=== PATIENT | female | born 1995 | race African-American/Black ===

== ENCOUNTER 2019-05-07 12:27 | Outpatient (CLI) | payer MEDICAID ==
[2019-05-07 13:20] LABS: APPEARANCE,URINE CLEAR; BILIRUBIN,URINE NEGATIVE (NEGATIVE); COLOR,URINE STRAW; GLUCOSE, URINE NEGATIVE (NEGATIVE); KETONES,URINE NEGATIVE (NEGATIVE); URINE SPECIFIC GRAVITY 1.016
[2019-05-07 13:21] LABS: LEUKOCYTE ESTERASE,URINE NEGATIVE (NEGATIVE); NITRITE,URINE NEGATIVE (NEGATIVE); PROTEIN,URINE NEGATIVE (NEGATIVE); UROBILINOGEN,URINE NEGATIVE mg/dL (<2.0)
[2019-05-07 13:23] LABS: URINE AMPHETAMINES SCREEN NEGATIVE; URINE BARBITURATES SCREEN NEGATIVE; URINE BENZODIAZEPINES SCREEN NEGATIVE; URINE COCAINE SCREEN NEGATIVE; URINE MARIJUANA (THC) SCREEN NEGATIVE; URINE METHADONE SCREEN NEGATIVE; URINE PHENCYCLIDINE SCREEN NEGATIVE
== END 2019-05-07 13:10 | disposition home or self-care (01) ==
LOC: LC 12:27
PROVIDERS: ATTEND Student in an Organized Health Care Education/Training Program
PROC: 4A1HXCZ Monitoring of Products of Conception, Cardiac Rate, External Approach (ICD-10-PCS; principal; 2019-05-07)
DX: O36.8130 Decreased fetal movements, third trimester, not applicable or unspecified (principal); Z3A.30 30 weeks gestation of pregnancy
CPT/HCPCS: 80307; 81001

== ENCOUNTER 2019-07-11 02:39 | Outpatient (CLI) | payer MEDICAID ==
[2019-07-11 03:07] LABS: APPEARANCE,URINE CLEAR; BILIRUBIN,URINE NEGATIVE (NEGATIVE); COLOR,URINE STRAW; GLUCOSE, URINE NEGATIVE (NEGATIVE); KETONES,URINE NEGATIVE (NEGATIVE); LEUKOCYTE ESTERASE,URINE NEGATIVE (NEGATIVE); NITRITE,URINE NEGATIVE (NEGATIVE); PROTEIN,URINE NEGATIVE (NEGATIVE); URINE SPECIFIC GRAVITY 1.003; UROBILINOGEN,URINE NEGATIVE mg/dL (<2.0)
[2019-07-11 03:24] LABS: URINE AMPHETAMINES SCREEN NEGATIVE; URINE BARBITURATES SCREEN NEGATIVE; URINE BENZODIAZEPINES SCREEN NEGATIVE; URINE COCAINE SCREEN NEGATIVE; URINE MARIJUANA (THC) SCREEN NEGATIVE; URINE METHADONE SCREEN NEGATIVE; URINE PHENCYCLIDINE SCREEN NEGATIVE
[2019-07-11] MEDS ORDERED: HYDROXYZINE PAMOATE 50 MG CAPSULE ONE (04:44)
[2019-07-11] MEDS ORDERED: HYDROXYZINE PAMOATE 50 MG CAPSULE PO ONE (05:00)
--- NOTE | 2019-07-11 05:04 | Non Stress Test Report ---
Non Stress Test Datetime Report Generated by CPN: 07/11/2019 05:04 DEMOGRAPHIC EGA NST: 39.5 INDICATION Indication for Study: Other Indication for Study (NST) Other: LC URINE RESULTS Urine Protein, NST: Negative Urine Ketones - NST: Negative Urine Glucose - NST: Negative Urine Blood - NST: Negative MONITORING Monitor Explained: Monitor Explained; Test Explained; Patient Verbalized Understanding Time on Monitor: 07/11/2019 02:54 Time off Monitor: 07/11/2019 04:39 NST Duration: 105 NST INTERVENTIONS NST Interventions: PO Hydration Physician Notified NST: Duncan BABY A: [id number] BABY A Movement : Present Contraction Frequency : 1.5-6 FHR Baseline : 135 Accelerations : 15X15 Decelerations : None Variability : Moderate 6-25bpm NST Review: Meets Criteria for Reactive NST NST Review and Verified By : Ramiro Rincon RN NST Results: Reactive NST REPORT Report Trigger: Send Report
== END 2019-07-11 04:50 | disposition home or self-care (01) ==
LOC: LC 02:39
PROVIDERS: ATTEND Obstetrics & Gynecology Gynecology
PROC: 4A1HXCZ Monitoring of Products of Conception, Cardiac Rate, External Approach (ICD-10-PCS; principal; 2019-07-11)
DX: O47.1 False labor at or after 37 completed weeks of gestation (principal); Z3A.39 39 weeks gestation of pregnancy
CPT/HCPCS: 59025; 81005; 80307; J3490

== ENCOUNTER 2019-07-11 13:29 | Outpatient (CLI) | payer MEDICAID ==
[2019-07-11 14:12] LABS: APPEARANCE,URINE CLEAR; BILIRUBIN,URINE NEGATIVE (NEGATIVE); COLOR,URINE YELLOW; GLUCOSE, URINE NEGATIVE (NEGATIVE); KETONES,URINE NEGATIVE (NEGATIVE); LEUKOCYTE ESTERASE,URINE TRACE (NEGATIVE); NITRITE,URINE NEGATIVE (NEGATIVE); PROTEIN,URINE NEGATIVE (NEGATIVE); URINE SPECIFIC GRAVITY 1.008; UROBILINOGEN,URINE NEGATIVE mg/dL (<2.0)
[2019-07-11 14:25] LABS: URINE AMPHETAMINES SCREEN NEGATIVE; URINE BARBITURATES SCREEN NEGATIVE; URINE BENZODIAZEPINES SCREEN NEGATIVE; URINE COCAINE SCREEN NEGATIVE; URINE MARIJUANA (THC) SCREEN NEGATIVE; URINE METHADONE SCREEN NEGATIVE; URINE PHENCYCLIDINE SCREEN NEGATIVE
[2019-07-11] MEDS ORDERED: PROMETHAZINE HCL 25 MG TABLET ONE (15:30)
[2019-07-11] MEDS ORDERED: OXYCODONE-ACETAMINOPHEN 5-325 MG TABLET ONE (15:31)
[2019-07-11] MEDS ORDERED: OXYCODONE-ACETAMINOPHEN 5-325 MG TABLET PO ONE (15:38)
[2019-07-11] MEDS ORDERED: PROMETHAZINE HCL 25 MG TABLET PO ONE (15:39)
== END 2019-07-11 15:40 | disposition home or self-care (01) ==
LOC: LC 13:29
PROVIDERS: ATTEND Obstetrics & Gynecology
PROC: 4A1HXCZ Monitoring of Products of Conception, Cardiac Rate, External Approach (ICD-10-PCS; principal; 2019-07-11)
DX: O47.1 False labor at or after 37 completed weeks of gestation (principal); Z3A.39 39 weeks gestation of pregnancy
CPT/HCPCS: 59025; 81005; 80307; J3490

== ENCOUNTER 2019-07-11 20:47 | Inpatient (IN) | payer MEDICAID ==
--- NOTE | 2019-07-11 20:52 | Non Stress Test Report ---
Non Stress Test Datetime Report Generated by CPN: 07/11/2019 20:51 DEMOGRAPHIC EGA NST: 39.5 INDICATION Indication for Study: Ordered by Provider MONITORING Monitor Explained: Monitor Explained; Test Explained; Patient Verbalized Understanding Time on Monitor: 07/11/2019 13:45 Time off Monitor: 07/11/2019 15:25 NST Duration: 100 NST INTERVENTIONS NST Interventions: PO Hydration Physician Notified NST: A.Baptiste, CNM BABY A: [id number] BABY A Movement : Present Contraction Frequency : 3-5 FHR Baseline : 140 Accelerations : 15X15 Decelerations : None Variability : Moderate 6-25bpm NST Review: Meets Criteria for Reactive NST NST Review and Verified By : Samara Deras RN NST Results: Reactive NST REPORT Report Trigger: Send Report
[2019-07-11] MEDS ORDERED: OXYTOCIN 10 UNIT/ML VIAL ONE (21:09)
[2019-07-11] MEDS ORDERED: MISOPROSTOL 0.2 MG TABLET ONE (21:09)
[2019-07-11] MEDS ORDERED: OXYTOCIN/NORMAL SALINE 20 UNIT/1,000 ML RTUINJ ONE (21:09)
[2019-07-11] MEDS ORDERED: LIDOCAINE 1% INJ-PF (10 MG/ML) 30 ML SDV ONE (21:09)
[2019-07-11 21:26] LABS: APPEARANCE,URINE SLIGHTLY-CLOUDY; BILIRUBIN,URINE NEGATIVE (NEGATIVE); COLOR,URINE YELLOW; GLUCOSE, URINE NEGATIVE (NEGATIVE); KETONES,URINE 20 mg/dL (NEGATIVE); LEUKOCYTE ESTERASE,URINE TRACE (NEGATIVE); NITRITE,URINE NEGATIVE (NEGATIVE); PROTEIN,URINE 30 mg/dL (NEGATIVE); URINE SPECIFIC GRAVITY 1.015; UROBILINOGEN,URINE NEGATIVE mg/dL (<2.0)
[2019-07-11] MEDS ORDERED: RINGERS SOLUTION,LACTATED 1,000 ML IV PRN (21:29)
[2019-07-11] MEDS ORDERED: RINGERS SOLUTION,LACTATED 300 ML IV ONE (21:30)
[2019-07-11] MEDS ORDERED: OXYTOCIN/NORMAL SALINE 20 UNIT/1,000 ML RTUINJ IV PRN (21:30)
[2019-07-11 21:41] LABS: URINE AMPHETAMINES SCREEN NEGATIVE; URINE BARBITURATES SCREEN NEGATIVE; URINE BENZODIAZEPINES SCREEN NEGATIVE; URINE COCAINE SCREEN NEGATIVE; URINE MARIJUANA (THC) SCREEN NEGATIVE; URINE METHADONE SCREEN NEGATIVE; URINE PHENCYCLIDINE SCREEN NEGATIVE
[2019-07-11] MEDS ORDERED: EPHEDRINE SULFATE INJ 50 MG/1 ML AMPULE ONE (21:41)
[2019-07-11] MEDS ORDERED: BUPIVACAINE HCL 0.25 % INJ/PF (2.5 MG/1 ML) 30 ML VIAL ONE (21:42)
[2019-07-11] MEDS ORDERED: FENTANYL/BUPIVACAINE/NS/PF 0 MCG/0 ML RTUINJ EPI ONE (21:42)
[2019-07-11 22:05] LABS: ABSOLUTE LYMPHOCYTES (AUTO) 1.7 10^3/uL (0.5-4.7); ABSOLUTE MONOCYTES (AUTO) 0.7 10^3/uL (0.1-1.4); ABSOLUTE NEUT (AUTO) 9.6 10^3/uL (1.7-8.2); BASOPHILS % (AUTO) 0.1 % (0-2); HEMATOCRIT 37.3 % (36.0-47.0); HEMOGLOBIN 12.2 g/dL (12.0-15.5); MEAN CORPUSCULAR HEMOGLOBIN 28.4 pg (27.0-33.4); MEAN CORPUSCULAR HGB CONC 32.8 g/dL (32.0-36.0); MEAN CORPUSCULAR VOLUME 87 fl (80-97); MONOCYTES % (AUTO) 6.2 % (3-13); RED BLOOD COUNT 4.31 10^6/uL (3.72-5.28); RED CELL DISTRIBUTION WIDTH 15.8 % (11.5-14.0); SEGMENTED NEUTROPHILS % (AUTO) 79.7 % (42-78); TOTAL CELLS COUNTED % (AUTO) 100 %
[2019-07-11 22:31] LABS: PLATELET COUNT 63 10^3/uL (150-450)
[2019-07-11 23:09] LABS: ABSOLUTE BASOPHILS # (AUTO) 0.1 10^3/uL (0.0-0.2); ABSOLUTE LYMPHOCYTES (AUTO) 1.7 10^3/uL (0.5-4.7); ABSOLUTE MONOCYTES (AUTO) 0.8 10^3/uL (0.1-1.4); ABSOLUTE NEUT (AUTO) 11.6 10^3/uL (1.7-8.2); BASOPHILS % (AUTO) 0.4 % (0-2); HEMATOCRIT 37.4 % (36.0-47.0); HEMOGLOBIN 12.4 g/dL (12.0-15.5); LYMPHOCYTES % (AUTO) 12.1 % (13-45); MEAN CORPUSCULAR HEMOGLOBIN 28.2 pg (27.0-33.4); MEAN CORPUSCULAR HGB CONC 33.2 g/dL (32.0-36.0); MEAN CORPUSCULAR VOLUME 85 fl (80-97); MONOCYTES % (AUTO) 5.9 % (3-13); RED BLOOD COUNT 4.41 10^6/uL (3.72-5.28); RED CELL DISTRIBUTION WIDTH 16.3 % (11.5-14.0); SEGMENTED NEUTROPHILS % (AUTO) 81.6 % (42-78); TOTAL CELLS COUNTED % (AUTO) 100 %; WHITE BLOOD COUNT 14.2 10^3/uL (4.0-10.5)
[2019-07-11 23:25] LABS: PLATELET COUNT 58 10^3/uL (150-450)
[2019-07-12] MEDS ORDERED: FENTANYL CITRATE INJ/PF 100 MCG/2 ML AMPUL ONE (01:14)
--- NOTE | 2019-07-12 02:52 | Admission Physical ---
Datetime Report Generated by CPN: 07/12/2019 02:51 CURRENT ADMISSION Chief Complaint: Uterine Contractions Indication for Induction: Not Applicable Admit Impression : Term, Intrauterine ; Active Labor Admit Plan: Admit to Unit; Initiate Labor Protocol ALLERGIES Medication Allergies: No Medication Allergies: No Known Allergies (07/11/2019) Latex: No Latex Allergies Food Allergies: n/a Environmental Allergies: n/a OBSTETRICAL HISTORY EDC: 07/13/2019 00:00 : 1 Para: 0 Term: 0 : 0 SAB: 0 IAB: 0 Ectopic: 0 Livin Cesareans: 0 VBACs: 0 Multiple Births: 0 Gestational Diabetes: No Rh Sensitization: No Incompetent Cervix: No LEIDA: No Infertility: No ART Treatment: No Uterine Anomaly: No IUGR: No Hx Previous C/S: No Macrosomia: No Hx Loss/Stillborn: No PIH: No Hx : No Placenta Previa/Abruption: No Depression/PP Depression: No PTL/PROM: No Post Hemorrhage: No Current Procedures: Ultrasound Obstetrical History Comments: G1: current SEE RECORDS Alcohol: No Marijuana : No Cocaine: No Other Illicit Drugs: No Cigarettes: Never Smoker. [id number] MEDICAL HISTORY Diabetes: No Blood Transfusion: No Pulmonary Disease (Asthma, TB): No Breast Disease: No Hypertension: No Assisted Living Care Manager Surgery: No Heart Disease: No Hosp/Surgery: No Autoimmune Disorder: No Anesthetic Complications: No Kidney Disease: No Abnormal Pap Smear: No Neuro/Epilepsy: Yes Psychiatric Disorders: No Other Medical Diseases: No Hepatitis/Liver Disease: No Significant Family History: No Varicosities/Phlebitis: No Trauma/Violence : No Thyroid Dysfunction: No Medical History Comments: seizures started @ 13y/o- last seizure 2010 INFECTIOUS HISTORY Gonorrhea: No Genital Herpes: No Chlamydia: No Tuberculosis: No Syphilis: No Hepatitis: No HIV/AIDS Exposure: No Rash or Viral Illness: No HPV: No Infectious History Comments: positive trich 10/28/18 RJ neg 06/21 PHYSICAL EXAM General: Normal HEENT: Normal Neurologic: Normal Thyroid: Normal Heart: Normal Lungs: Normal Breast: Normal Back: Normal Abdomen: Normal Genitourinary Exam: Normal Extremities: Normal DTRs: Normal Pelvic Type: Adequate Vital Signs: Reviewed VAGINAL EXAM Dilatation: 5 Effacement: 90 Station: -1 MEMBRANES Pooling: Positive Membranes: Ruptured Amniotic Fluid Color: Clear FETUS A EGA: 39.6 Monitoring: External US FHR- Baseline: 130 Variability: Moderate 6-25bpm Accelerations: 15X15 Decelerations: None FHR Category: Category I Estimated Weight (gm): 3700 Presentation: Vertex Admit Comment: maternal thrombocytopenia noted with admission labs. Plts 53K. Epidural not advisable. will recheck plts 12 hours after initial blood draw. Uterotonics available for delivery and [address] for potential hemorrhage protocol. PLANS FOR LABOR AND DELIVERY Labor and Delivery: None Pain Management: Natural; Medications; Epidural Feeding Preference: Breast Benefit of Breast Feed Discussed: Yes Circumcision: Yes INFORMED CONSENT Signature: with User ID: [email or web address]
[2019-07-12] MEDS ORDERED: DIPH/PERTUSS(ACELL)/TETANUS VAC/PF 0.5 ML SYR (>=10YO) IM PRN (02:57)
[2019-07-12] MEDS ORDERED: ACETAMINOPHEN 650 MG SUPP.RECT PR PRN (02:57)
[2019-07-12] MEDS ORDERED: OXYTOCIN/NORMAL SALINE 20 UNIT/1,000 ML RTUINJ IV PRN (02:57)
[2019-07-12] MEDS ORDERED: GLYCERIN/WITCH HAZEL LEAF 1 EACH MED..WIPE TP PRN (02:57)
[2019-07-12] MEDS ORDERED: NA PHOS,M-B/NA PHOS,DI-BA (ADULT) 133 ML ENEMA PR PRN (02:57)
[2019-07-12] MEDS ORDERED: DIBUCAINE 1% OINTMENT 56 GM TP PRN (02:57)
[2019-07-12] MEDS ORDERED: PROMETHAZINE HCL INJ 25 MG/1 ML VIAL IV PRN (02:57)
[2019-07-12] MEDS ORDERED: PROMETHAZINE HCL 25 MG TABLET PO PRN (02:57)
[2019-07-12] MEDS ORDERED: PSEUDOEPHEDRINE HCL 30 MG TABLET PO PRN (02:57)
[2019-07-12] MEDS ORDERED: ACETAMINOPHEN WITH CODEINE #3 TABLET PO PRN (02:57)
[2019-07-12] MEDS ORDERED: MAGNESIUM HYDROXIDE SUSP 30 ML UDCUP PO PRN (02:57)
[2019-07-12] MEDS ORDERED: DIPHENHYDRAMINE HCL 25 MG CAPSULE PO PRN (02:57)
[2019-07-12] MEDS ORDERED: MISOPROSTOL 0.2 MG TABLET PR PRN (02:57)
[2019-07-12] MEDS ORDERED: ZOLPIDEM TARTRATE 5 MG TABLET PO PRN (02:57)
[2019-07-12] MEDS ORDERED: MEASLES,MUMPS&RUBELLA VACC/PF 0.5 ML VIAL SUBCUT PRN (02:57)
[2019-07-12] MEDS ORDERED: BENZOCAINE/MENTHOL AEROSOL SPRAY 56 ML TOP PRN (02:57)
[2019-07-12] MEDS ORDERED: PROMETHAZINE HCL 25 MG SUPP.RECT PR PRN (02:57)
[2019-07-12] MEDS ORDERED: AMPICILLIN SOD/SULBACTAM 3 GM VIAL IV SCH (03:00)
[2019-07-12] MEDS ORDERED: CARBOPROST TROMETHAMINE INJ 250 MCG/1 ML AMPULE ONE (06:50)
[2019-07-12] MEDS ORDERED: METHYLERGONOVINE MALEATE INJ/PF 0.2 MG/1 ML AMPULE ONE (06:50)
[2019-07-12] MEDS ORDERED: OXYTOCIN/NORMAL SALINE 20 UNIT/1,000 ML RTUINJ ONE (07:40)
[2019-07-12] MEDS ORDERED: MEPERIDINE HCL/PF INJ 25 MG/1 ML DISP.SYRIN ONE (07:40)
[2019-07-12] MEDS ORDERED: TRANEXAMIC ACID INJ/PF 1,000 MG/10 ML SDV IV ONE (09:55)
--- NOTE | 2019-07-12 10:34 | Delivery Summary ---
Del Sum A-C Datetime Report Generated by CPN: 07/12/2019 10:34 DELIVERY PERSONNEL DELIVERY PERSONNEL: [id number] Delivery Doctor:: Kellen Garza MD Labor and Delivery Nurse:: Carrie Ochoa RNmanager cafe Nurse:: Erum Silva RN Additional Personnel: : Celestina Adams RN MATERNAL INFORMATION Delivery Anesthesia: None Medications During Delivery: TXA Medications After Delivery: Pitocin Drip 20 Units/1000ml NSS; Methergine 0.2mg IM; Cytotec 1000mcg Per Rectum/Vagina; Other-Please Comment Delivery QBL: 550 Maternal Complications: None LABOR SUMMARY EDC: 07/13/2019 00:00 No. Babies in Womb: 1 Attempted: No Labor Anesthesia: None LABOR INFORMATION Reason for Induction: Not Applicable Onset of Labor: 07/11/2019 21:05 Complete Dilatation: 07/12/2019 05:15 Oxytocin: N/A Group B Beta Strep: negative Antibiotics # of Doses: None Steroids Given: None Reason Steroids Not Administered: Not Applicable MEMBRANES Membranes Rupture Method: Spontaneous Rupture of Membranes: 07/11/2019 18:00 Length of Rupture (hr): 13.45 Amniotic Fluid Color: Clear Amniotic Fluid Amount: Small Amniotic Fluid Odor: Normal STAGES OF LABOR Stage 1 hr: 8 Stage 1 min: 10 Stage 2 hr: 2 Stage 2 min: 12 Stage 3 hr: 0 Stage 3 min: 2 Total Time in Labor hr: 10 Total Time in Labor min: 24 VAGINAL DELIVERY Episiotomy: None Laceration #1: Vaginal Laceration Extension #1: First Degree Laceration Repair: Not Applicable Sponge Count Correct: Yes Sharps Count Correct: Yes CSECTION DELIVERY Primary Indication: N/A Secondary Indication: N/A CSection Incidence: N/A Labor: N/A Elective: N/A CSection Incision: N/A BABY A INFORMATION Delivery Date/Time: 07/12/2019 07:27 Method of Delivery: Vaginal Born in Route : No : N/A Forceps: N/A Vacuum Extraction: N/A Shoulder Dystocia : No PRESENTATION/POSITION BABY A Presentation: Cephalic Cephalic Presentation: Vertex Vertex Position: Left Occipital Posterior Breech Presentation: N/A PLACENTA INFORMATION BABY A Placenta Delivery Time : 07/12/2019 07:29 Placenta Method of Delivery: Spontaneous Placenta Status: Delivered SCORES BABY A Heart Rate 1 min: >100 bpm Resp Effort 1 min: Slow, Irregular Reflex Irritability 1 min: Grimace Muscle Tone 1 min: Flaccid Color 1 min: Blue/Pale Resuscitation Effort 1 min: PPV/NCPAP SCORE 1 MIN: 4 Heart Rate 5 min: >100 bpm Resp Effort 5 min: Good Cry Reflex Irritability 5 min: Cough or Sneeze or Pulls Away Muscle Tone 5 min: Active Motion Color 5 min: Body Emerson, Extremities Blue SCORE 5 MIN: 9 INFANT INFORMATION BABY A Gestational Age at Delivery: 39.6 Gestational Status: Full Term- 39- 40.6 Weeks Infant Outcome : Liveborn Condition : Stable Infant Sex: Male IDENTIFICATION BABY A Infant Verification Date/Time: 07/12/2019 07:54 ID Band Number: [id number] Mother's Name Verified: Yes Infant RN Verifying Infant: B Baidy RN/K Gerichten RN WEIGHT/LENGTH BABY A Infant Birthweight (gm): 3205 Infant Weight (lb): 7 Infant Weight (oz): 1 Infant Length (in): 20.00 Infant Length (cm): 50.80 CORD INFORMATION BABY A No. Cord Vessels: 3 Nuchal Cord : N/A Cord Blood Taken: Yes-For Storage (Mom's Blood type +) Suction: Mouth; Nose ASSESSMENT BABY A Infant Complications: None Physical Findings at Delivery: Caput Succedaneum Infant Respirations: Nasal Flaring Skin to Skin: Yes Porcelain Enamel Repairer/ALS Called : No Infant Care By: Anna Hernandezchristina RN Transferred To: Remains with Mother BABY B INFORMATION : N/A SIGNATURES Signature: with User ID: Alana
[2019-07-12] MEDS: IBUPROFEN 800 MG TABLET PO SCH ×3 (11:02→21:25)
[2019-07-12] MEDS: SENNOSIDES/DOCUSATE 8.6-50 MG 1 EACH TABLET PO SCH (11:13)
[2019-07-12] MEDS: FERROUS SULFATE 325 MG TABLET PO SCH ×2 (11:13→17:39)
[2019-07-12] MEDS: DOCUSATE SODIUM 100 MG CAPSULE PO SCH ×2 (11:13→17:37)
[2019-07-12] MEDS: FAMOTIDINE 20 MG TABLET PO SCH ×2 (11:13→21:28)
[2019-07-12] MEDS: PRENATAL VITAMIN W DHA CAPSULE PO SCH (11:13)
[2019-07-12] MEDS: ACETAMINOPHEN WITH CODEINE #3 TABLET PO PRN (13:47)
[2019-07-13] MEDS: IBUPROFEN 800 MG TABLET PO SCH ×3 (06:08→22:19)
[2019-07-13] MEDS: ACETAMINOPHEN WITH CODEINE #3 TABLET PO PRN ×3 (07:07→22:19)
[2019-07-13 08:02] LABS: HEMATOCRIT 32.1 % (36.0-47.0); HEMOGLOBIN 10.6 g/dL (12.0-15.5); MEAN CORPUSCULAR HEMOGLOBIN 28.5 pg (27.0-33.4); MEAN CORPUSCULAR VOLUME 86 fl (80-97); RED BLOOD COUNT 3.71 10^6/uL (3.72-5.28); RED CELL DISTRIBUTION WIDTH 16.4 % (11.5-14.0); WHITE BLOOD COUNT 16.5 10^3/uL (4.0-10.5)
[2019-07-13 08:23] LABS: PLATELET COUNT 71 10^3/uL (150-450)
[2019-07-13] MEDS: FAMOTIDINE 20 MG TABLET PO SCH ×2 (10:04→22:19)
[2019-07-13] MEDS: PRENATAL VITAMIN W DHA CAPSULE PO SCH (10:05)
[2019-07-13] MEDS: SENNOSIDES/DOCUSATE 8.6-50 MG 1 EACH TABLET PO SCH (10:05)
[2019-07-13] MEDS: FERROUS SULFATE 325 MG TABLET PO SCH ×2 (10:05→17:03)
[2019-07-13] MEDS: DOCUSATE SODIUM 100 MG CAPSULE PO SCH ×2 (10:05→17:03)
[2019-07-13 11:30] LABS: PATH REVIEW PATHOLOGIST REVIEWED
--- NOTE | 2019-07-13 14:01 | PDOC PROGRESS REPORT ---
Subjective-OB Progress Note for:: 07/13/19 Subjective: 23yo G1 now P1 s/p ppd1. Ambulating, and voiding without difficulty. Denies any concerns today. Physical Exam (OB) Vital Signs: Temp Pulse Resp BP Pulse Ox 98.5 F 102 H 16 123/78 100 07/13/19 07:10 07/13/19 07:10 07/13/19 07:10 07/13/19 07:10 07/13/19 07:10 Intake & Output 07/12/19 07/13/19 07/14/19 06:59 06:59 06:59 Weight 85.6 kg - General General Appearance: Appears well In distress: None - PIH/Pre-Eclampsia DTR's: 1 + Clonus: Negative Headache: Absent Epigastric Pain: No Visual Changes: No - Episiotomy/Laceration Site Condition: Well Approximated - Lochia Lochia Amount: Scant < 10 ml Lochia Color: Rubra/Red - Abdomen Description: Soft, Round Hernia Present: No Fundal Description: Firm, Midline Fundal Height: u/u - u/2 - HEENT Eyes: Other - subconjunctival hemorrhage bilaterally - Respiratory Respiratory Status: No respiratory distress - Extremities Upper extremity: Normal inspection Lower extremities: Normal inspection - Neurological Cognition: Normal Orientation: AAOx4 - Psychological Associated symptoms: Normal affect, Normal mood Objective-Diagnostic Laboratory: 07/13/19 07:12 07/13/19 07:12 WBC 16.5 H RBC 3.71 L Hgb 10.6 L Hct 32.1 L MCV 86 MCH 28.5 MCHC 33.0 RDW 16.4 H Plt Count 71 L Assessment and Plan(PN) - Assessment and Plan (1) hemorrhage Qualifiers: hemorrhage type: unspecified Qualified Code(s): O72.1 - Other immediate hemorrhage Is this a current diagnosis for this admission?: Yes Plan: bleeding stable today, Continue to monitor (2) Acute blood loss anemia Is this a current diagnosis for this admission?: Yes Plan: increase dietary iron and FeSO4 BID (3) Seizure disorder Is this a current diagnosis for this admission?: Yes Plan: no seizures since 2010, needs seizures precautions initiated (4) Thrombocytopenia complicating Is this a current diagnosis for this admission?: Yes Plan: Hematology consult placed and Dr. Kramer who is the OB electronic publishing specialist spoke to adaptive physical education specialist who requested labs to be drawn in the AM prior to his visit. Discussed possible dx with patient who asked questions and verbalized understanding (5) Vaginal delivery Is this a current diagnosis for this admission?: Yes Plan: routine pp care - Time Spent with Patient Time with patient: 15-25 minutes Medications reviewed and adjusted accordingly: Yes - Disposition Anticipated Discharge: Home Within: within 24 hours
[2019-07-14] MEDS: IBUPROFEN 800 MG TABLET PO SCH (05:39)
[2019-07-14] MEDS: ACETAMINOPHEN WITH CODEINE #3 TABLET PO PRN (07:57)
[2019-07-14 07:58] VITALS: BP 115/69
[2019-07-14 07:58] LABS: FIBRINOGEN 393 mg/dL (209-497); INTERNATIONAL RATION (INR) 0.98; PARTIAL THROMBOPLASTIN TIME 31.4 SEC (23.5-35.8)
[2019-07-14 08:03] LABS: ABSOLUTE EOSINOPHILS # (AUTO) 0.1 10^3/uL (0.0-0.6); ABSOLUTE LYMPHOCYTES (AUTO) 3.5 10^3/uL (0.5-4.7); ABSOLUTE MONOCYTES (AUTO) 0.8 10^3/uL (0.1-1.4); BASOPHILS % (AUTO) 0.1 % (0-2); LYMPHOCYTES % (AUTO) 28.1 % (13-45); MEAN CORPUSCULAR HEMOGLOBIN 28.6 pg (27.0-33.4); MEAN CORPUSCULAR HGB CONC 33.5 g/dL (32.0-36.0); MEAN CORPUSCULAR VOLUME 85 fl (80-97); MONOCYTES % (AUTO) 6.5 % (3-13); RED BLOOD COUNT 3.16 10^6/uL (3.72-5.28); RED CELL DISTRIBUTION WIDTH 16.5 % (11.5-14.0); SEGMENTED NEUTROPHILS % (AUTO) 64.3 % (42-78); TOTAL CELLS COUNTED % (AUTO) 100 %; WHITE BLOOD COUNT 12.4 10^3/uL (4.0-10.5)
[2019-07-14 08:36] LABS: PLATELET COUNT 80 10^3/uL (150-450)
--- NOTE | 2019-07-14 08:45 | PDOC CONSULTATION ---
Consultation Consult Date: 07/14/19 Attending physician:: MANUEL CEE Provider Consulted: INDRA PRESTON Consult reason:: Thrombocytopenia History of Present Illness Admission Date/PCP: 07/11/19 21:13 LOUIS CRAWFORD MD Patient complains of: Thrombocytopenia History of Present Illness: HIGINIO VERMA is a 23 year old female recently who had an uncomplicated delivery, ultimately was found to have a platelet count postdelivery of 58, it has risen over the last couple days to 71. She is not actively bleeding she does have a right eye subconjunctival hemorrhage. But otherwise is doing well, not bleeding excessively post delivery. Of note, she does have a platelet count in the 140s in the last few weeks, and does not ever remember having a low platelet count the past. Past Medical History Neurological Medical History: Reports: Seizures Past Surgical History Past Surgical History: Reports: None Social History Information Source: Patient Smoking Status: Never Smoker Drugs: None Hx Prescription Drug Abuse: No - Advance Directive Resuscitation Status: Full Code Family History Family History: Reviewed & Not Pertinent Parental Family History Reviewed: Yes Children Family History Reviewed: Yes Sibling(s) Family History Reviewed.: Yes Medication/Allergy Home Medications: Doxylamine Succinate/Vit B6 [Diclegis Dr 10-10 mg Tablet] 1 tab PO DAILY 05/07/19 Pnv No.95/Ferrous Fum/Folic AC [ Multivitamin Tablet] 1 tab PO DAILY 05/07/19 Allergies/Adverse Reactions: No Known Allergies Allergy (Verified 07/11/19 03:48) Review of Systems Constitutional: ABSENT: chills, fever(s), headache(s), weight gain, weight loss Eyes: ABSENT: visual disturbances Ears: ABSENT: hearing changes Cardiovascular: ABSENT: chest pain, dyspnea on exertion, edema, orthropnea, palpitations Respiratory: ABSENT: cough, hemoptysis Gastrointestinal: ABSENT: abdominal pain, constipation, diarrhea, hematemesis, hematochezia, nausea, vomiting Genitourinary: ABSENT: dysuria, hematuria Musculoskeletal: ABSENT: joint swelling Integumentary: ABSENT: rash, wounds Neurological: ABSENT: abnormal gait, abnormal speech, confusion, dizziness, focal weakness, syncope Psychiatric: ABSENT: anxiety, depression, homidical ideation, suicidal ideation Endocrine: ABSENT: cold intolerance, heat intolerance, polydipsia, polyuria Hematologic/Lymphatic: ABSENT: easy bleeding, easy bruising Physical Exam Vital Signs: Temp Pulse Resp BP Pulse Ox 98.3 F 74 14 115/69 98 07/14/19 07:48 07/14/19 07:48 07/14/19 07:48 07/14/19 07:48 07/14/19 07:48 General appearance: PRESENT: no acute distress, well-developed, well-nourished Head exam: PRESENT: atraumatic, normocephalic Eye exam: PRESENT: conjunctiva pink, EOMI, PERRLA. ABSENT: scleral icterus Ear exam: PRESENT: normal external ear exam Mouth exam: PRESENT: moist, tongue midline Neck exam: ABSENT: carotid bruit, JVD, lymphadenopathy, thyromegaly Respiratory exam: PRESENT: clear to auscultation roverto. ABSENT: rales, rhonchi, wheezes Cardiovascular exam: PRESENT: RRR. ABSENT: diastolic murmur, rubs, systolic murmur Pulses: PRESENT: normal dorsalis pedis pul Vascular exam: PRESENT: normal capillary refill GI/Abdominal exam: PRESENT: normal bowel sounds, soft. ABSENT: distended, guar ding, mass, organolmegaly, rebound, tenderness Rectal exam: PRESENT: deferred Extremities exam: PRESENT: full ROM. ABSENT: calf tenderness, clubbing, pedal edema Neurological exam: PRESENT: alert, awake, oriented to person, oriented to place, oriented to time, oriented to situation, CN II-XII grossly intact. ABSENT: motor sensory deficit Psychiatric exam: PRESENT: appropriate affect, normal mood. ABSENT: homicidal ideation, suicidal ideation Skin exam: PRESENT: dry, intact, warm. ABSENT: cyanosis, rash Results Laboratory Results: 07/14/19 06:50 07/14/19 06:50 WBC 12.4 H RBC 3.16 L Hgb 9.0 L Hct 27.0 L MCV 85 MCH 28.6 MCHC 33.5 RDW 16.5 H Plt Count 80 L Seg Neutrophils % 64.3 Assessment & Plan - Diagnosis (1) Thrombocytopenia complicating Is this a current diagnosis for this admission?: Yes Plan: Platelet count improved to 80, okay today for discharge. We will plan for platelet count next week and follow-up a few weeks thereafter. Cause could be either thrombocytopenia of versus ITP. - Time Time Spent: Greater than 70 Minutes
[2019-07-14] MEDS: PRENATAL VITAMIN W DHA CAPSULE PO SCH (09:42)
[2019-07-14] MEDS: SENNOSIDES/DOCUSATE 8.6-50 MG 1 EACH TABLET PO SCH (09:42)
[2019-07-14] MEDS: DOCUSATE SODIUM 100 MG CAPSULE PO SCH (09:42)
[2019-07-14] MEDS: FERROUS SULFATE 325 MG TABLET PO SCH (09:42)
[2019-07-14] MEDS: FAMOTIDINE 20 MG TABLET PO SCH (09:42)
--- NOTE | 2019-07-14 09:48 | PDOC PROGRESS REPORT ---
Subjective-OB Progress Note for:: 07/14/19 Subjective: Ready for discharge. Physical Exam (OB) Vital Signs: Temp Pulse Resp BP Pulse Ox 98.3 F 74 14 115/69 98 07/14/19 09:20 07/14/19 09:20 07/14/19 09:20 07/14/19 07:48 07/14/19 09:20 - PIH/Pre-Eclampsia DTR's: 1 + Clonus: Negative Headache: Absent Epigastric Pain: No Visual Changes: No - Lochia Lochia Amount: Scant < 10 ml Lochia Color: Rubra/Red - Abdomen Description: Soft Hernia Present: No Bowel Sounds: Normoactive Flatus Presence: Present Stool: No Fundal Description: Firm, Midline Fundal Height: u/u - u/2 Objective-Diagnostic Laboratory: 07/14/19 06:50 07/14/19 06:50 WBC 12.4 H RBC 3.16 L Hgb 9.0 L Hct 27.0 L MCV 85 MCH 28.6 MCHC 33.5 RDW 16.5 H Plt Count 80 L Seg Neutrophils % 64.3 Assessment and Plan(PN) - Time Spent with Patient Medications reviewed and adjusted accordingly: Yes - Disposition Anticipated Discharge: Home
--- NOTE | 2019-07-14 09:59 | PDOC DISCHARGE SUMMARY ---
Final Diagnosis Discharge Date: 07/14/19 - Final Diagnosis (1) Acute blood loss anemia Is this a current diagnosis for this admission?: Yes (2) hemorrhage Is this a current diagnosis for this admission?: Yes (3) Seizure disorder Is this a current diagnosis for this admission?: Yes (4) Thrombocytopenia complicating Is this a current diagnosis for this admission?: Yes (5) Vaginal delivery Is this a current diagnosis for this admission?: Yes Discharge Data - Discharge Medication Prescriptions: Ferrous Sulfate [Feosol 325 mg Tablet] 325 mg PO BID #60 tablet Home Medications: Pnv No.95/Ferrous Fum/Folic AC [ Multivitamin Tablet] 1 tab PO DAILY 05/07/19 Ferrous Sulfate [Feosol 325 mg Tablet] 325 mg PO BID #60 tablet 07/14/19 Gestational Age: 39.6 wks Reason(s) for Admission: Onset of Labor Procedures: Ultrasound Intrapartum Procedure(s): Spontaneous Vaginal Delivery Complication(s): Laceration-Vaginal - [place] Data Baby 1 Male at 1 minute: 4 at 5 minutes: 9 Weight: 3.203 kg Home with Mother: Yes Complications: No - Diagnosis Test Laboratory: Temp Pulse Resp BP Pulse Ox 98.3 F 74 14 115/69 98 07/14/19 09:20 07/14/19 09:20 07/14/19 09:20 07/14/19 07:48 07/14/19 09:20 07/11/19 07/11/19 07/11/19 20:48 21:40 23:00 RBC 4.31 4.41 Hgb 12.2 12.4 Hct 37.3 37.4 Urine Opiates Screen UNCONFIRMED POSITIVE 07/13/19 07/14/19 07:12 06:50 RBC 3.71 L 3.16 L Hgb 10.6 L 9.0 L Hct 32.1 L 27.0 L Urine Opiates Screen - Discharge information/Instructions Discharge Activity: Activity As Tolerated, Balance Activity w/Rest, No Lifting Over 10 Pounds, No Lifting/Push/Pulling, Pelvic Rest, Slowly Increase Activity, No tub bath Discharge Diet: Regular Disposition: HOME, SELF-CARE Follow up with: [facility] in: 4, Weeks
== END 2019-07-14 12:55 | disposition home or self-care (01) | DRG 806 ==
LOC: LC 20:47 → LR 21:13 → 2S 07-12 10:20
PROVIDERS: ADMIT Obstetrics & Gynecology; ATTEND Obstetrics & Gynecology
PROC: 10E0XZZ Delivery of Products of Conception, External Approach (ICD-10-PCS; principal; 2019-07-12)
DX: O99.12 Other diseases of the blood and blood-forming organs and certain disorders involving the immune mechanism complicating childbirth (principal); D62 Acute posthemorrhagic anemia; Z37.0 Single live birth; O99.354 Diseases of the nervous system complicating childbirth; O72.1 Other immediate postpartum hemorrhage; D69.59 Other secondary thrombocytopenia; H11.31 Conjunctival hemorrhage, right eye; O70.0 First degree perineal laceration during delivery; Z3A.39 39 weeks gestation of pregnancy; Z86.19 Personal history of other infectious and parasitic diseases; O99.02 Anemia complicating childbirth; G40.909 Epilepsy, unspecified, not intractable, without status epilepticus
CPT/HCPCS: 36415; 80307; 81005; 84112; 85025; 85027; 85384; 85610; 85730; 86592; 86850; 86900; 86901; J2175; J2210; J2590; J3010; J3490